=== PATIENT | female | born 1930 | race Caucasian/White ===

== ENCOUNTER → 2016-11-05 | Outpatient (REF) ==
[~2016-11-05] MED LIST: AMIODARONE PO; ASPIRIN E.C. 8181 MG PO; ATENOLOL25 MG PO; AVAPRO TAB150 MG/TAB PO; BETAPACE 80MG80 MG PO; BETAPACE AF120 MG PO; CARAFATE 1GM1 G PO; CARDIZEM 60MG T60 MG PO; CARDIZEM CD240 MG PO; CARDIZEM60 MG PO; COUMADIN 22.5 MG/TAB PO; COUMADIN 4MG4 MG/TAB PO; COUMADIN2.5 MG PO; DIGOXIN0.125 MG PO; EVISTA; EVISTA 60MG60 MG/TAB PO; EVISTA60 MG PO; LISINOPRIL/HCTZ1 TA1 PO; LISINOPRIL5 MG PO; METOPROLOL SUCC50 MG PO; METOPROLOL25 MG PO; NEXIUM ORA40 MG/Pack PO; NEXIUM40 MG PO; PAXIL 10MG10 MG PO; PRILOSEC 20MG20 MG PO; SPIRIVA HANDIH18 MCG IH; SPIRIVA18 MCG IH; TERAZOSIN; ZOCOR40 MG PO; ZOCOR80 MG PO; ZOFRAN 8MG8 MG PO; [UNRECOGNIZED DRUG - OTHER]
== END ==
LOC: ZLAB.WCH 15:13
DX: Z01.89 Encounter for other specified special examinations (principal)